=== PATIENT | female | born 1990 | race Caucasian/White ===

== ENCOUNTER 2018-12-24 20:08 | Emergency (ER) | payer BC, SELFPAY ==
[~2018-12-24] VITALS: Ht 152.4 cm; Wt 61.4 kg
[2018-12-24 20:18] VITALS: BP 132/83
== END 2018-12-24 21:16 | disposition home or self-care (01) ==
LOC: M ED 20:08
DX: F43.22 Adjustment disorder with anxiety (principal); F39 Unspecified mood [affective] disorder; F17.200 Nicotine dependence, unspecified, uncomplicated